=== PATIENT | female | born 2000 | race Caucasian/White ===

== ENCOUNTER 2021-07-08 04:46 | Emergency (ER) | payer OTHER ==
[~2021-07-08] VITALS: Ht 180.3 cm; Wt 89.0 kg
[2021-07-08 04:56] VITALS: BP 128/80
--- NOTE | 2021-07-08 07:49 | NUR ---
patient to room from lobby
--- NOTE | 2021-07-08 07:49 | NUR ---
Rebeka baldwin in [facility] - 07/08/21 at 0750 by HORACE patient to room from karen
--- NOTE | 2021-07-08 07:50 | NUR ---
no answer x1
--- NOTE | 2021-07-08 08:01 | NUR ---
STEVEN RN: CALLED FROM [facility], NO ANSWER
--- NOTE | 2021-07-08 08:08 | NUR ---
STEVEN RN: CALLED FROM [facility], NO ANSWER
== END 2021-07-08 08:09 | disposition left against medical advice (07) ==
LOC: ED 08:02
DX: O26.892 Other specified pregnancy related conditions, second trimester (principal); R10.9 Unspecified abdominal pain; Z3A.17 17 weeks gestation of pregnancy; Z53.21 Procedure and treatment not carried out due to patient leaving prior to being seen by health care provider